=== PATIENT | female | born 1940 | race Caucasian/White ===

== ENCOUNTER 2021-12-03 10:44 | Emergency (ER) | payer MEDICARE, BC ==
[2021-12-03] MEDS ORDERED: Lidocaine 1% 5 ML VIAL INJECT ONE (11:51)
[2021-12-03] MEDS ORDERED: Bupivacaine 0.25% 10 ML SDV INJECT ONE (11:51)
[2021-12-03] MEDS ORDERED: Diphtheria,Pertussis(Acell),Tetanus Vaccine 0.5 ML Syringe IM ONE (12:15)
== END 2021-12-03 12:58 | disposition home or self-care (01) ==
LOC: MW.ED 10:44
DX: S61.411A Laceration without foreign body of right hand, initial encounter (principal); I10 Essential (primary) hypertension; Z23 Encounter for immunization; Z79.899 Other long term (current) drug therapy; W26.0XXA Contact with knife, initial encounter
CPT/HCPCS: 90471; 90715; 99282; 99283